=== PATIENT | male | born 1970 | race Caucasian/White ===

== ENCOUNTER 2017-07-08 19:06 | Observation (INO) | payer OTHER ==
[~2017-07-08] VITALS: Ht 185.4 cm; Wt 87.2 kg
[2017-07-08 19:54] LABS: HEMATOCRIT 31.3 % (38.0-50.0); HEMOGLOBIN 10.7 G/DL (12.5-16.6); MCH 27.6 PG (29.0-34.0); MCHC 34.2 G/DL (30.0-36.0); MCV 80.9 FL (86-99); PLATELET COUNT 306 K/uL (156-360); RBC DIS.WIDTH-CV 14.3 % (11.8-14.6); RBC DIS.WIDTH-SD 41.8 % (39-53); RED BLOOD COUNT 3.87 M/uL (4.00-5.50); WHITE BLOOD COUNT 9.8 K/uL (4.1-10.2)
[2017-07-08 20:22] LABS: CHLORIDE 106 mEq/L (99-109); POTASSIUM 3.9 mEq/L (3.7-5.4); SODIUM 140 mEq/L (136-147)
[2017-07-08 20:23] LABS: GLUCOSE 83 mg/dL (70-99)
[2017-07-08 20:27] LABS: CREATININE 1.1 mg/dL (0.6-1.3); GFR ESTIMATE (CALCULATED) > 59 mL/min/ (58.99-99999)
[2017-07-08 20:28] LABS: UREA NITROGEN (BUN) 19 mg/dL (9-23)
[2017-07-08 20:51] LABS: INTER. NORMALIZED RATIO 1.3
[2017-07-08 21:14] LABS: BILIRUBIN NEGATIVE; BLOOD LARGE; GLUCOSE (STRIP) NEGATIVE; KETONES NEGATIVE; LEUKOCYTES NEGATIVE; NITRITE NEGATIVE; PROTEIN (STRIP) 100; SPECIFIC GRAVITY 1.012 (1.000-1.030); UROBILINOGEN 0.2 MG/DL (0.2-1.0)
[2017-07-08 21:15] LABS: RED BLOOD CELLS TNTC /HPF (0-5); UCUL ADDED? YES
[2017-07-08 21:18] LABS: COLOR BROWN ((YELLOW))
[2017-07-08 21:19] LABS: APPEARANCE TURBID ((CLEAR))
[2017-07-08] MEDS ORDERED: LO-DOSE ASPIRIN81 M1 PO (21:58)
[2017-07-08] MEDS ORDERED: AMARYL4 MG PO (21:59)
[2017-07-08] MEDS ORDERED: COREG12.5 M1 PO (21:59)
[2017-07-08] MEDS ORDERED: TRESIBA FL200 UNIT/1 SC (22:02)
[2017-07-08] MEDS ORDERED: GLUCOPHAGE500 MG PO (22:03)
[2017-07-08] MEDS ORDERED: CRESTOR40 MG PO (22:04)
[2017-07-08] MEDS ORDERED: ZESTRIL2.5 MG PO (22:04)
[2017-07-08] MEDS ORDERED: BRILINTA90 MG PO (22:04)
[2017-07-08] MEDS ORDERED: NITROSTAT0.4 MG SL (22:05)
[2017-07-08] MEDS ORDERED: PAIN RELIEF EX500 MG PO (22:06)
[2017-07-08 22:10] LABS: BILIRUBIN NEGATIVE; BLOOD LARGE; GLUCOSE (STRIP) NEGATIVE; KETONES NEGATIVE; LEUKOCYTES NEGATIVE; NITRITE NEGATIVE; PROTEIN (STRIP) 100; SPECIFIC GRAVITY 1.012 (1.000-1.030); UROBILINOGEN 0.2 MG/DL (0.2-1.0)
[2017-07-08 22:14] LABS: APPEARANCE TURBID ((CLEAR)); COLOR BROWN ((YELLOW))
[2017-07-08 22:25] LABS: RED BLOOD CELLS TNTC /HPF (0-5); UCUL ADDED? YES
[2017-07-08 23:59] VITALS: BP 157/97
[2017-07-09 00:07] LABS: HEMATOCRIT 30.7 % (38.0-50.0); HEMOGLOBIN 10.3 G/DL (12.5-16.6); MCV 81.4 FL (86-99)
[2017-07-09 05:12] LABS: BASOPHIL (%) 0.5 % (0-1); BASOPHIL COUNT 0.1 K/uL (0-0.1); EOSINOPHIL (%) 0.5 % (0-5); EOSINOPHIL COUNT 0.1 K/uL (0-0.3); HEMATOCRIT 29.4 % (38.0-50.0); HEMOGLOBIN 9.6 G/DL (12.5-16.6); IMMATURE GRANULOCYTE (%) 0.2 % (0.0-0.7); LYMPHOCYTE (%) 20.3 % (15-42); LYMPHOCYTE COUNT 1.9 K/uL (1.0-2.8); MCH 26.9 PG (29.0-34.0); MCHC 32.7 G/DL (30.0-36.0); MCV 82.4 FL (86-99); MONOCYTE (%) 8.1 % (3-12); MONOCYTE COUNT 0.8 K/uL (0-0.8); NEUTROPHIL (%) 70.4 % (45-76); NEUTROPHIL COUNT 6.5 K/uL (1.8-6.4); PLATELET COUNT 290 K/uL (156-360); RBC DIS.WIDTH-CV 14.3 % (11.8-14.6); RBC DIS.WIDTH-SD 42.5 % (39-53); RED BLOOD COUNT 3.57 M/uL (4.00-5.50); WHITE BLOOD COUNT 9.2 K/uL (4.1-10.2)
[2017-07-09 05:19] VITALS: BP 145/93
[2017-07-09 05:39] LABS: CHLORIDE 106 MEQ/L (99-109); GFR ESTIMATE (CALCULATED) > 59 mL/min/ (58.99-99999); POTASSIUM 3.7 MEQ/L (3.7-5.4); SODIUM 139 MEQ/L (136-147); UREA NITROGEN (BUN) 19 mg/dL (9-23)
[2017-07-09 06:04] LABS: GLUCOSE 113 mg/dL (70-99)
[2017-07-09 07:45] VITALS: BP 138/94
[2017-07-09 11:24] VITALS: BP 106/73
[2017-07-09 19:18] VITALS: BP 129/78
[2017-07-10 00:16] VITALS: BP 149/93
[2017-07-10 04:26] VITALS: BP 137/84
[2017-07-10 05:31] LABS: HEMOGLOBIN 9.8 G/DL (12.5-16.6); MCH 26.6 PG (29.0-34.0); MCHC 32.7 G/DL (30.0-36.0); MCV 81.3 FL (86-99); PLATELET COUNT 262 K/uL (156-360); RBC DIS.WIDTH-CV 14.1 % (11.8-14.6); RED BLOOD COUNT 3.69 M/uL (4.00-5.50)
[2017-07-10 05:50] LABS: CHLORIDE 104 MEQ/L (99-109); CREATININE 1.1 MG/DL (0.6-1.3); GFR ESTIMATE (CALCULATED) > 59 mL/min/ (58.99-99999); GLUCOSE 162 mg/dL (70-99); MAGNESIUM 1.8 mg/dl (1.3-2.7); SODIUM 138 MEQ/L (136-147); UREA NITROGEN (BUN) 17 mg/dL (9-23)
[2017-07-10 08:50] VITALS: BP 148/96
[2017-07-10 11:16] VITALS: BP 144/86
[2017-07-10] MEDS ORDERED: CEFTIN500 MG PO (12:05)
[2017-07-10] MEDS ORDERED: PERCOCET 5/31 TABLET PO (12:06)
== END 2017-07-10 15:56 | disposition home or self-care (01) ==
LOC: EME 19:06 → 4SOUTH 22:34 → EDOF 22:34 → ENRESERV 22:37 → 4SOUTH 07-09 00:03
PROVIDERS: Emergency Medicine; Hospitalist; Internal Medicine
PROC: 0T9B70Z Drainage of Bladder with Drainage Device, Via Natural or Artificial Opening (ICD-10-PCS; principal; 2017-07-08)
DX: R33.9 Retention of urine, unspecified (principal); R31.0 Gross hematuria; N13.2 Hydronephrosis with renal and ureteral calculous obstruction; N31.2 Flaccid neuropathic bladder, not elsewhere classified; I25.10 Atherosclerotic heart disease of native coronary artery without angina pectoris; I25.2 Old myocardial infarction; Z95.5 Presence of coronary angioplasty implant and graft; I10 Essential (primary) hypertension; E11.9 Type 2 diabetes mellitus without complications; Z79.01 Long term (current) use of anticoagulants; Z79.82 Long term (current) use of aspirin; Z87.442 Personal history of urinary calculi; Z87.19 Personal history of other diseases of the digestive system; Z82.49 Family history of ischemic heart disease and other diseases of the circulatory system; Z79.4 Long term (current) use of insulin
CPT/HCPCS: 76770; 80048; 81003; 82948; 83735; 85014; 85018; 85025; 85027; 85610; 86850; 86900; 86901; 87086; 99281; 99284; G0378; J0696; J1170; J1885; J7030